=== PATIENT | male | born 1975 | race Caucasian/White ===

== ENCOUNTER 2018-08-07 07:26 | Outpatient (CLI) ==
--- NOTE | 2018-08-07 08:51 | US ---
EXAM: Right upper quadrant abdominal ultrasound. History: Elevated liver enzymes. Technique: Multiple sonographic images through the abdomen were obtained. Color duplex Doppler was used to interrogate vascular flow. Findings: The liver is echogenic with areas of focal fatty sparing. There is antegrade flow within the main portal vein. Pancreas is unremarkable. No abdominal ascites. The right kidney is within n ormal limits. No shadowing gallstones. Mild nonspecific gallbladder wall thickening. Common bile d uct measures 0.5 cm in caliber. Impression: 1. Hepatic steatosis. 2. No cholelithiasis. 3. Mild nonspecific gallbladder wall thickening
== END 2018-08-07 07:27 | disposition home or self-care (01) ==
LOC: RAD 07:26
PROVIDERS: ATTEND Internal Medicine
DX: R74.9 Abnormal serum enzyme level, unspecified (principal)